=== PATIENT | female | born 1935 | race Caucasian/White ===

== ENCOUNTER → 2017-03-06 | Outpatient (CLI) | payer OTHER, BC ==
--- NOTE | 2017-03-06 14:40 | RAD ---
HISTORY: Right shoulder pain, nontraumatic Study: Right shoulder three view Comparison: None Findings: The clavicle is intact. AC joint degenerative joint disease is present. The glenohumeral articulati on is normal in its appearance. No acute cortical disruption or dislocation can be identified. The visualized portions of the scapula are unremarkable. In addition, the visualized portions of the r ight hemithorax appear normal. IMPRESSION: 1. AC joint degenerative joint disease Reported By:
== END ==
LOC: RAD 14:09
PROVIDERS: ATTEND Specialist
DX: M25.511 Pain in right shoulder (principal); M19.011 Primary osteoarthritis, right shoulder
CPT/HCPCS: 73030